=== PATIENT | male | born 1935 | race Caucasian/White ===

== ENCOUNTER 2017-05-02 16:06 | Emergency (ER) | payer MEDICARE ==
[~2017-05-02] VITALS: Ht 172.7 cm; Wt 77.1 kg
[~2017-05-02 16:06] MED LIST: CEPH-264 PO; DILT240C32 PO; HYDR-965 PO; IPRATROPIUM INH; LEVO500T59 PO; LISI-334 PO; MOME13HF2 IH; PRED20TA PO
[2017-05-02] MEDS ORDERED: IPRATRPIUM/ALBUTEROL 0.5/2.5MG 3 ML NEBU. NEB ONE (16:15)
--- NOTE | 2017-05-02 16:31 | EKG ---
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
[2017-05-02 16:37] LABS: BASO # 0.1 x10^3/uL (0.0-0.2); BASO % 1 % (0-3); EOS % 0 % (0-3); HEMATOCRIT 36.7 % (39.0-53.0); HEMOGLOBIN 11.8 g/dL (13.0-17.5); LYMPH # 0.8 x10^3/uL (1.0-4.8); LYMPH % 4 % (24-48); MEAN CORPUSCULAR HEMOGLOBIN 27 pg (25-35); MEAN CORPUSCULAR HGB CONC 32 g/dL (31-37); MEAN CORPUSCULAR VOLUME 84 fL (79-100); MONO % 7 % (0-9); NEUT % 89 % (31-73); PLATELET COUNT 334 x10^3/uL (140-400); RED BLOOD COUNT 4.35 x10^6/uL (4.30-5.70); RED CELL DISTRIBUTION WIDTH 15.9 % (11.5-14.5); WHITE BLOOD COUNT 20.3 x10^3/uL (4.0-11.0)
[2017-05-02 16:47] LABS: CALCIUM 8.6 mg/dL (8.5-10.1); CREATININE 1.1 mg/dL (0.7-1.3); GFR 64.2; POTASSIUM 4.1 mmol/L (3.5-5.1)
[2017-05-02 16:53] LABS: ALBUMIN 2.8 g/dL (3.4-5.0); DIRECT BILIRUBIN 0.1 mg/dL (0.0-0.2); TOTAL BILIRUBIN 0.4 mg/dL (0.2-1.0); TOTAL PROTEIN 6.8 g/dL (6.4-8.2)
[2017-05-02 17:10] LABS: % EOS 1 % (0-5); PLT ESTIMATE ADEQUATE (ADEQUATE)
[2017-05-02 17:13] VITALS: BP 138/61
--- NOTE | 2017-05-02 17:21 | PHYS DOC ---
Past Medical History Past Medical History: A-Fib, COPD, Hypertension Past Surgical History: Other Additional Past Surgical Histo: [facility] HERNIA REPAIR, BACK, L ELBOW, L LEG Alcohol Use: Occasionally Drug Use: None Adult General Chief Complaint Chief Complaint: SHORTNESS OF BREATH HPI HPI 82-year-old male presenting to the emergency department today with shortness of breath and chest pain present for proximally 4 hours. He describes it as a charley horse. It is mild to moderate intermittent and currently improving. His pain is nonradiating. He has had a cough and reports a fever at home as well. Review of systems is negative for abdominal pain confusion cyanosis lethargy. All other review of systems is negative unless otherwise noted in history of present illness. ED course: 82-year-old male presenting to the emergency department today with cough chest pain and fever. Patient was not tachycardic upon arrival. His pain was improving significantly. EKG was obtained of the patient which showed sinus rhythm with a regular rate. [place] within normal limits. ST segments congruent. Chest x-ray concerning for pneumonia. Blood work shows leukocytosis consistent with diagnosis of pneumonia. Otherwise troponin negative. Pneumonia severity index calculated to be 81 which is class III. Also curb 65 testing shows 1 point for age. Both these clinical decision rules were used to decide on outpatient antibiotic therapy to follow-up with his primary care physician in 2 days. The patient is comfortable plan. The patient was then discharged home in stable condition to follow up with their primary care physician over the next 2- 3 days. They were to return if their symptoms worsened or if they were concerned for any reason. [id number]-imod discharge instructions and return precautions were given. Patient's questions were answered to their satisfaction. Patient is comfortable plan. Review of Systems Review of Systems SEE ABOVE. Current Medications Current Medications Current Medications Medications (Trade) Dose Ordered Sig/Lilly Start Time Stop Time Status Last Admin Dose Admin Albuterol/ Ipratropium (Duoneb) 3 ml 1X ONCE 05/02/17 16:15 05/02/17 16:16 DC 05/02/17 16:23 3 ML Allergies Allergies Allergies Coded Allergies Type Severity Reaction Last Updated Verified Iodinated Contrast- Oral and IV Dye Allergy Intermediate 05/02/17 No Physical Exam Physical Exam SEE ABOVE Constitutional: Well developed, well nourished, no acute distress, non-toxic appearance. [] HENT: Normocephalic, atraumatic, bilateral external ears normal, oropharynx moist, no oral exudates, nose normal. [] Eyes: PERRLA, EOMI, conjunctiva normal, no discharge. [] Neck: Normal range of motion, no tenderness, supple, no stridor. [] Cardiovascular:Heart rate regular rhythm, no murmur [] Lungs & Thorax: Mild wheezing on left more than the right. Abdomen: Bowel sounds normal, soft, no tenderness, no masses, no pulsatile masses. [] Skin: Warm, dry, no erythema, no rash. [] Back: No tenderness, no CVA tenderness. [] Extremities: No tenderness, no cyanosis, no clubbing, ROM intact, no edema. [] Neurologic: Alert and oriented X 3, normal motor function, normal sensory function, no focal deficits noted. [] Psychologic: Affect normal, judgement normal, mood normal. [] Current Patient Data Vital Signs Vital Signs Date Time Temp Pulse Resp B/P (MAP) Pulse Ox O2 Delivery O2 Flow Rate FiO2 05/02/17 16:27 95 Room Air 05/02/17 16:15 100.8 94 20 140/57 (84) 100.8 Lab Values Laboratory Tests Test 05/02/17 16:29 White Blood Count 20.3 x10^3/uL (4.0-11.0) H Red Blood Count 4.35 x10^6/uL (4.30-5.70) Hemoglobin 11.8 g/dL (13.0-17.5) L Hematocrit 36.7 % (39.0-53.0) L Mean Corpuscular Volume 84 fL (79-100) Mean Corpuscular Hemoglobin 27 pg (25-35) Mean Corpuscular Hemoglobin Concent 32 g/dL (31-37) Red Cell Distribution Width 15.9 % (11.5-14.5) H Platelet Count 334 x10^3/uL (140-400) Neutrophils (%) (Auto) 89 % (31-73) H Lymphocytes (%) (Auto) 4 % (24-48) L Monocytes (%) (Auto) 7 % (0-9) Eosinophils (%) (Auto) 0 % (0-3) Basophils (%) (Auto) 1 % (0-3) Neutrophils # (Auto) 18.0 x10^3uL (1.8-7.7) H Lymphocytes # (Auto) 0.8 x10^3/uL (1.0-4.8) L Monocytes # (Auto) 1.3 x10^3/uL (0.0-1.1) H Eosinophils # (Auto) 0.1 x10^3/uL (0.0-0.7) Basophils # (Auto) 0.1 x10^3/uL (0.0-0.2) Segmented Neutrophils % 77 % (35-66) H Band Neutrophils % 13 % (0-9) H Lymphocytes % 6 % (24-48) L Monocytes % 3 % (0-10) Eosinophils % 1 % (0-5) Platelet Estimate Adequate (ADEQUATE) Sodium Level 140 mmol/L (136-145) Potassium Level 4.1 mmol/L (3.5-5.1) Chloride Level 104 mmol/L (98-107) Carbon Dioxide Level 25 mmol/L (21-32) Anion Gap 11 (6-14) Blood Urea Nitrogen 17 mg/dL (8-26) Creatinine 1.1 mg/dL (0.7-1.3) Estimated GFR (Cockcroft-Gault) 64.2 Glucose Level 138 mg/dL (70-99) H Calcium Level 8.6 mg/dL (8.5-10.1) Total Bilirubin 0.4 mg/dL (0.2-1.0) Direct Bilirubin 0.1 mg/dL (0.0-0.2) Aspartate Amino Transferase (AST) 16 U/L (15-37) Alanine Aminotransferase (ALT) 27 U/L (16-63) Alkaline Phosphatase 87 U/L (46-116) Troponin I Quantitative < 0.017 ng/mL (0.000-0.055) XU-Lqm-G-Type Natriuretic Peptide 426 pg/mL (0-449) Total Protein 6.8 g/dL (6.4-8.2) Albumin 2.8 g/dL (3.4-5.0) L Lipase 62 U/L (73-393) L Laboratory Tests 05/02/17 16:29 Laboratory Tests 05/02/17 16:29 EKG EKG [] Radiology/Procedures Radiology/Procedures [] Course & Med Decision Making Course & Med Decision Making Pertinent Labs and Imaging studies reviewed. (See chart for details) [] Dragon Disclaimer Dragon Disclaimer This electronic medical record was generated, in whole or in part, using a voice recognition dictation system. Departure Departure Impression: Primary Impression: Pneumonia Disposition: 01 HOME, SELF-CARE Condition: STABLE Referrals: ANDRDAE JANG MD (PCP) Patient Instructions: Pneumonia, Adult Additional Instructions: Thank you for allowing us to participate in your care today. Followup with your primary care physician in 3 days if your symptoms do not improve. Call your Primary Doctor tomorrow and inform them of your visit today. If you do not have a primary care provider you can ask for a list of our primary care providers. Return to the emergency department you have any new or concerning findings. This should be evaluated by the primary care physician and any necessary consulting services for continued management within a few days after discharge. Return to emergency room if you have any new or concerning symptoms including but not limited to fever, chills, nausea, vomiting, intractable pain, any new rashes, chest pain, shortness of air, uncontrolled bleeding, difficulty breathing, and/or vision loss. XOCHITL CASTLE MD May 02, 2017 17:21
[2017-05-02] MEDS ORDERED: LEVO500T59 PO (17:25)
[2017-05-02] MEDS ORDERED: PROAIR HFA8.5 GM INH (17:25)
--- NOTE | 2017-05-03 12:50 | RAD ---
Portable chest, 05/02/2017: History: Dyspnea Comparison is made to a study from 09/15/2016. The heart size is normal. There are emphysematous changes in the lungs with scattered parenchymal scars. Superimposed right upper chest infiltrates seen on the previous study have cleared. There are new mild pulmonary opacities now evident in the left upper chest laterally. No pleural fluid or pneumothorax is evident. Old healed rib fractures are again noted on the upper left. IMPRESSION: 1. Emphysema with moderate pleural/parenchymal scarring. 2. New peripheral left upper chest opacities suggesting pneumonia. Note: The findings were called to personnel in the [facility] ER at 12:45 PM on 05/03/2017.
== END 2017-05-02 17:29 | disposition home or self-care (01) ==
LOC: ER 16:06
DX: J18.9 Pneumonia, unspecified organism (principal); I10 Essential (primary) hypertension; I48.91 Unspecified atrial fibrillation; J44.0 Chronic obstructive pulmonary disease with (acute) lower respiratory infection; Z98.890 Other specified postprocedural states; Z91.041 Radiographic dye allergy status
CPT/HCPCS: 36415; 71010; 80048; 80076; 83690; 83880; 84484; 85007; 85027; 93005; 94250; 94640; 99285; J7620

== ENCOUNTER 2019-12-29 10:11 | Emergency (ER) | payer MEDICARE ==
[~2019-12-29] VITALS: Ht 177.8 cm; Wt 72.2 kg
[~2019-12-29 10:11] MED LIST changes: +ALBU2.5V8 INH; +HYDR-3165 PO; -HYDR-965 PO
[2019-12-29] MEDS ORDERED: METHOCARBAMOL 500 MG TABLET PO ONE (10:45)
[2019-12-29] MEDS ORDERED: ONDANSETRON ODT 4 MG TAB.RAPDIS. PO ONE (10:45)
[2019-12-29] MEDS ORDERED: MORPHINE SULFATE 10 MG/ML VIAL. IM ONE (10:45)
--- NOTE | 2019-12-29 10:54 | PHYS DOC ---
Past Medical History Past Medical History: A-Fib, COPD, Hypertension Past Surgical History: Other Additional Past Surgical Histo: [facility] HERNIA REPAIR, BACK, L ELBOW, L LEG Smoking Status: Former Smoker Alcohol Use: Occasionally Drug Use: None Adult General Chief Complaint Chief Complaint: LOWER BACK PAIN OR INJURY HPI HPI Patient is a 84 year old M who arrives to ER with complaints of low back pain. He is ambulatory but with discomfort and states it hurts worse to sit down. Pt has a hx of a pelvic fracture and lumbar surgery 15+ years ago. He states he has trouble with pain sometimes but usually movement helps. Yesterday he was laying down and immobile most of the day and thinks that caused his back to be very stiff. Today he is having a lot of pain and discomfort with movement. He denies radiation of pain down his legs or any saddle anesthesia. He denies any change in his bowel or bladder function and specifically denies any incontinence. Review of Systems Review of Systems Constitutional: Denies fever or chills HENT: Denies nasal congestion or sore throat Respiratory: Denies cough or shortness of breath Cardiovascular: Denies chest pain GI: Denies abdominal pain, nausea, vomiting, bloody stools or diarrhea Musculoskeletal: Reports back pain. Integument: Denies rash or skin lesions Neurologic: Denies headache, focal weakness or sensory changes All other systems were reviewed and found to be within normal limits, except as documented in this note. Current Medications Current Medications Current Medications Medications (Trade) Dose Ordered Sig/Lilly Start Time Stop Time Status Last Admin Dose Admin Methocarbamol (Robaxin) 500 mg 1X ONCE 12/29/19 10:45 12/29/19 10:46 DC 12/29/19 11:14 500 MG Morphine Sulfate (Morphine Sulfate) 5 mg 1X ONCE 12/29/19 10:45 12/29/19 10:46 DC Ondansetron HCl (Zofran Odt) 4 mg 1X ONCE 12/29/19 10:45 12/29/19 10:46 DC 12/29/19 10:47 4 MG Allergies Allergies Allergies Coded Allergies Type Severity Reaction Last Updated Verified Iodinated Contrast Media Allergy Intermediate 05/02/17 No Physical Exam Physical Exam Constitutional: Well developed, well nourished, no acute distress, non-toxic appearance. HENT: Normocephalic, atraumatic, bilateral external ears normal, oropharynx moist Neck: Normal range of motion, no tenderness, supple, no stridor. Cardiovascular:Heart rate regular rhythm, no murmur Lungs & Thorax: Bilateral breath sounds clear to auscultation Abdomen: Bowel sounds normal, soft, no tenderness, no masses, no pulsatile masses. Skin: Warm, dry, no erythema, no rash. Back: Tenderness to palpation along right side of lumbar spine in perispinous region with spasm noted with palpation. No pain along buttock B and no leg pain. Extremities: No tenderness, no cyanosis, no clubbing, ROM intact, no edema. Strong femoral pulses B Neurologic: Alert and oriented X 3, normal motor function. Sensory intact B legs and arms. Psychologic: Affect normal, judgement normal, mood normal. Current Patient Data Vital Signs Vital Signs Date Time Temp Pulse Resp B/P (MAP) Pulse Ox O2 Delivery O2 Flow Rate FiO2 12/29/19 11:13 67 128/51 (76) 97 Room Air 12/29/19 10:20 98.4 20 98.4 EKG EKG [] Radiology/Procedures Radiology/Procedures CT scan shows degenerative findings as well as an infrarenal abdominal aortic estasia measuring 2.7cm and a R common iliac artery aneursym measuring 2.4 cm. Course & Med Decision Making Course & Med Decision Making Pt declined Morphine shot here in ER but did take muscle relaxer. He is walking around room stating it helps to move. Discussed CT findings with pt and he has no known hx of aneurysms. Discussed case with vascular, Dr. Hong, who states it would be unlikely that this pain is related to the vascular findings and he recommends pt f/u in their office for outpatient evaluation after quarantine gu idelines have been lifted. Discussed this with pt and gave him Dr. Hong office number. Pt will be given Rx for Robaxin BID as well as some Lidoderm patches. He has Gibbs at home that he has been taking. He is also instructed to apply heat. Recommend f/u with PCP or ortho if back pain persists. Dragon Disclaimer Dragon Disclaimer This electronic medical record was generated, in whole or in part, using a voice recognition dictation system. Departure Departure Impression: Primary Impression: Lumbar back pain Additional Impression: Iliac artery aneurysm, right Disposition: 01 HOME, SELF-CARE Condition: IMPROVED Referrals: ANDRADE JANG MD (PCP) TEE HONG DO Patient Instructions: Degenerative Disk Disease, Muscle Strain, [id number] Additional Instructions: We believe you have pulled some muscles in your back and your chronic back pain has been inflamed. However, on imaging today we did find an aneurysm. It is fairly small at this time but needs to be monitored closely. We spoke with the vascular doctor, Dr. Hong, who would like you to schedule a follow up visit with their office in the next few weeks/months. Call the number to schedule. Return to ER if symptoms worsen at anytime. Scripts Lidocaine (Lidocaine PATCH ) 1 Each Adh..patch 1 EACH TP DAILY for FOR LOCAL PAIN for 7 Days, #7 PATCH REMOVE AFTER 12 HOURS Prov: DARIA HYDE 12/29/19 Methocarbamol (ROBAXIN-750) 750 Mg Tablet 1 TAB PO BID PRN for MUSCLE SPASMS for 14 Days, #28 TAB 0 Refills Prov: DARIA HYDE 12/29/19 Problem Qualifiers DARIA HYDE Dec 29, 2019 10:54
[2019-12-29 11:13] VITALS: BP 128/51
--- NOTE | 2019-12-29 11:21 | RAD ---
CT LUMBAR SPINE WO CONTRAST History: Lumbar spine surgery. Some onset low back pain. Difficulty walking. Technique: Noncontrast CT was performed of the lumbar spine. Multiplanar reconstructions were performed. Exposure: One or more of the following individualized dose reduction techniques were utilized for this examination: 1. Automated exposure control 2. Adjustment of the mA and/or kV according to patient size 3. Use of iterative reconstruction technique. Comparison: None Findings: Infrarenal abdominal aortic ectasia measures 2.7 cm. Right common iliac artery aneurysm measures 2.4 cm. Colonic diverticulosis. Postoperative changes L4-L5 and L5-S1. Bilateral facet fusion L4-S1. Partial intervertebral fusion L4-L5. Normal vertebral body height and alignment. No fracture. T12-L1: Minimal disc bulge. No canal or neuroforaminal narrowing. L1-L2: Minimal disc bulge. Mild facet arthropathy. No canal or neuroforaminal narrowing. L2-L3: Small posterior disc bulge. Moderate facet arthropathy. Bilateral subarticular recess narrowing. Ligament of flavum thickening. No canal narrowing. No neuroforaminal narrowing. L3-L4: Broad-based disc bulge. Advanced facet arthropathy. Moderate canal narrowing. Mild bilateral neuroforaminal narrowing. L4-L5: No canal narrowing. Facet fusion. No neuroforaminal narrowing. L5-S1: Minimal disc bulge. No canal narrowing. No neuroforaminal narrowing. Impression: 1. Postoperative changes lower lumbar spine. 2. 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 3. Additional multilevel lumbar spondylosis. 4. Right common iliac artery aneurysm. Electronically signed by: Gustavo Brice DO (12/29/2019 11:18 AM) [id number]
[2019-12-29] MEDS ORDERED: LIDO700A21 TP (11:52)
[2019-12-29] MEDS ORDERED: METH-38 PO (11:52)
== END 2019-12-29 11:55 | disposition home or self-care (01) ==
LOC: ER 10:11
DX: I72.3 Aneurysm of iliac artery (principal); M54.5 Low back pain; J44.9 Chronic obstructive pulmonary disease, unspecified; I48.91 Unspecified atrial fibrillation; I10 Essential (primary) hypertension; Z87.891 Personal history of nicotine dependence; Z91.041 Radiographic dye allergy status
CPT/HCPCS: 72131; 99284; Q0162; 99283